=== PATIENT | female | born 1945 | race Two or more races ===

== ENCOUNTER → 2017-09-21 | Outpatient (CLI) | payer MEDICARE, MEDICAID ==
--- NOTE | 2017-09-21 09:31 | EKG ---
Date Performed: 09/21/2017 Time Performed: 09:02:47 PTAGE: 71 years EKG: Sinus rhythm LOW QRS VOLTAGE IN PRECORDIAL LEADS INFERIOR MYOCARDIAL INFARCTION , OF INDETERMINATE AGE Nonspecifi c ST and T wave abnormalities ABNORMAL ECG NO PREVIOUS TRACING DOCTOR: Kevin Encinas Interpretating Date/Time 09/21/2017 09:30:06
== END ==
LOC: HCAV 08:31
PROVIDERS: ATTEND Internal Medicine
DX: I49.9 Cardiac arrhythmia, unspecified (principal)
CPT/HCPCS: 93005